=== PATIENT | male | born 1960 | race Caucasian/White ===

== ENCOUNTER 2018-02-05 06:09 | Day surgery (SDC) | payer OTHER ==
[2018-02-02 12:50] VITALS: BMI 29.1
[2018-02-05] MEDS ORDERED: methylPREDNISolone ACET (DEPO) 40 MG/1 ML VIAL ONE (07:08)
[2018-02-05] MEDS ORDERED: LIDOCAINE 1%/EPI 1:100000 (20 ML MULTI DOSE VIAL) ONE (07:08)
[2018-02-05] MEDS ORDERED: ceFAZolin SODIUM 1 GM VIAL ONE (07:08)
[2018-02-05] MEDS ORDERED: DEXAMETHASONE SOD PHOSPHATE 4 MG/1 ML VIAL ONE (07:08)
[2018-02-05] MEDS ORDERED: THROMBIN (RECOMBINANT) 5,000 UNIT VIAL TP ONE (07:08)
[2018-02-05] MEDS ORDERED: SODIUM CHLORIDE 0.9% P/F 10 ML VIAL IJ ONE (07:08)
[2018-02-05] MEDS ORDERED: ONDANSETRON 4 MG/2 ML VIAL ONE (07:08)
[2018-02-05] MEDS ORDERED: MIDAZOLAM HCL 2 MG/2 ML SINGLE DOSE VIAL ONE ×3 (07:14→08:46)
[2018-02-05] MEDS ORDERED: BUPIVACAINE HCL/PF 0.5% (5MG/ML) 10 ML VIAL ONE (07:17)
[2018-02-05] MEDS ORDERED: oxyCODONE HCL 10 MG SUSTAINED ACTING TABLET ONE (07:18)
[2018-02-05] MEDS ORDERED: CEFAZOLIN 2 GM in DEXTROSE 5%-WATER - 100 ML IVPB ONE (07:18)
[2018-02-05] MEDS ORDERED: oxyCODONE HCL 10 MG SUSTAINED ACTING TABLET PO STA (07:18)
--- NOTE | 2018-02-05 07:37 | HP ---
History & Physical Update - History History: No Change - Physical Physical: No Change - Assessment Assessment: No Change - Plan Plan: No Change (patient presents for elective L3-L4 laminectomy, no chanes since visit with Dr Vila on 01/13/18)
[2018-02-05] MEDS ORDERED: DEXAMETHASONE SOD PHOSPHATE/PF 10 MG/ML SDV ONE (07:46)
[2018-02-05] MEDS ORDERED: BUPIVACAINE HCL/PF (5 MG/ML) 30 ML VIAL IJ ONE (07:46)
[2018-02-05] MEDS ORDERED: DEXMEDETOMIDINE HCL 200 MCG/2 ML ML IVPB ONE (08:41)
[2018-02-05] MEDS ORDERED: GUM MASTIC/STORAX/MSAL/ALCOHOL 1 DRP DROPSBTL MC ONE (09:29)
--- NOTE | 2018-02-05 10:41 | OP ---
Operative Note - Note: Operative Date: 02/05/18 Pre-Operative Diagnosis: Lumbar stenosis Operation: L3-L4 laminectomy Post-Operative Diagnosis: Same as Pre-op Surgeon: Kenn Vila Pit Clerk: Asmita Enamorado Anesthesiologist/BIN OPERATOR: Tim Kim Anesthesia: Spinal, Local (with sedation) Estimated Blood Loss (mls): 10 Fluid Volume Replaced (mls): 500 Operative Report Dictated: Yes
--- NOTE | 2018-02-05 10:42 | SURG ---
Surgery Produce Manager Note Produce Manager: Asmita Enamorado PA-C Date of Service: 02/05/18 Diagnosis: Lumbar stenosis Procedure: L3-L4 laminectomy I was present for the entirety of the operative procedure. For further detail, please refer to operative report. Visit type - Case Type Case Type: Scheduled - Emergency Emergency Visit: No - New patient This patient is new to me today: Yes Date on this admission: 02/05/18
[2018-02-05] MEDS ORDERED: oxyCODONE HCL 5 MG TABLET PO PRN (11:05)
[2018-02-05] MEDS ORDERED: ONDANSETRON 4 MG/2 ML VIAL IVPUSH PRN (11:05)
[2018-02-05 12:39] VITALS: TEMP 98.1
[2018-02-05 13:44] VITALS: BP 105/68; PULSE 81
== END 2018-02-05 13:40 | disposition home or self-care (01) ==
LOC: FASU 06:09
PROVIDERS: ATTEND Orthopaedic Surgery Orthopaedic Surgery of the Spine
PROC: 01NB0ZZ Release Lumbar Nerve, Open Approach (ICD-10-PCS; principal; 2018-02-05 09:21)
DX: M48.061 Spinal stenosis, lumbar region without neurogenic claudication (principal)
CPT/HCPCS: 72100-TC-FY; 94760